=== PATIENT | male | born 1995 ===

== ENCOUNTER 2023-12-10 16:23 | Outpatient (CLI) | payer OTHER, SELFPAY ==
--- NOTE | ~2023-12-10 | XR_ITS ---
XR thoracic spine 2V 12/10/2023 17:02 Indication: Back pain Procedure: 3 views thoracic spine Comparison: No prior studies for comparison. Findings: Vertebral body heights are maintained. No paraspinal soft tissue abnormality. Pedicles inta ct. No fracture or traumatic malalignment. No significant soft tissue abnormality. No foreign bodies. Impression: 1: No significant abnormality of the thoracic spine. Reviewed, dictated and finalized at location L. Impression: 1: No significant abnormality of the thoracic spine.
--- NOTE | ~2023-12-10 | XR_ITS ---
XR pelvis 1-2V 12/10/2023 17:02 Indication: Pelvic and low back pain. SI joint pain. Procedure: AP pelvis Comparison: No prior studies for comparison. Findings: Pelvic rings are intact. No fracture, subluxation or dislocation. There is anatomic alignme nt. Sacroiliac joints are symmetric. No soft tissue abnormality. Impression: 1: No significant bone or joint abnormality. Reviewed, dictated and finalized at location L. Impression: 1: No significant bone or joint abnormality.
--- NOTE | ~2023-12-10 | XR_ITS ---
XR lumbar spine 2-3V 12/10/2023 17:02 Indication: Low back pain Procedure: 3 views lumbar spine Comparison: No prior studies for comparison. Findings: Vertebral body heights are maintained. No fracture or traumatic malalignment. No evidence f or spondylolisthesis. Mild dextrocurvature of the lumbar spine centered at L3. Sacral foramen are sym metric. There is mild disc narrowing at L4-5. Impression: 1: Mild lumbar spondylosis with dextrocurvature of the lumbar spine. Reviewed, dictated and finalized at location L. Impression: 1: Mild lumbar spondylosis with dextrocurvature of the lumbar spine.
--- NOTE | ~2023-12-10 | XR_ITS ---
XR_[id number]_CR INDICATION: Neck pain. TECHNIQUE: 3 views of the cervical spine. FINDINGS: The cervical spine is visualized to the cervicothoracic junction. There is no prevertebral soft tiss ue swelling, listhesis, or loss of vertebral body height. Intervertebral disc spaces are normal. Th e osseous central canal is patent. No displaced cervical spine fractures are identified. IMPRESSION: 1. No acute osseous abnormality of the cervical spine. Reviewed, dictated and finalized at location L.
== END 2023-12-10 16:24 ==
LOC: MICIMG 16:27
PROVIDERS: PCP Chiropractor; Visit Provider Chiropractor
DX: M54.2 Cervicalgia (principal); M54.6 Pain in thoracic spine; M47.896 Other spondylosis, lumbar region
CPT/HCPCS: 72040; 72070; 72100; 72170